=== PATIENT | male | born 1995 ===

== ENCOUNTER 2017-02-09 09:59 | Emergency (ER) | payer OTHER ==
[2017-02-09 10:21] VITALS: BP 132/85; PULSE 85; RESP 18; TEMP 97.7; O2SAT 96
--- NOTE | 2017-02-09 10:28 | UCPHY ---
H & P Time Seen by Provider: 02/09/17 10:14 Patient Type: Established HPI/ROS: CHIEF COMPLAINT: "I have testicular torsion" HPI: The patient is a 21-year-old male who states he has a history of testicular torsion. He complains of pain in the left testicle since approximately 9:00 a.m. this morning, 90 minutes ago. The patient went to see primary care provider in this building who examined him and told him that he likely had testicular torsion. The patient states that he has history of testicular torsion, but when asked about this, the patient states that he had similar symptoms a few years ago which he was able to correct on his own and had an ultrasound following that was normal. He has not ever been officially diagnosed with testicular torsion in the past. He denies any recent trauma. Patient tells me that what happens is he smokes too much marijuana which causes his testicles to ride very low, which then apparently causes testicular torsion. REVIEW OF SYSTEMS: Aside from elements discussed in the HPI, a comprehensive 10-point review of systems was reviewed and is negative. PMH: None known. SOCIAL HISTORY: Admits to marijuana use. Denies other drug abuse. FAMILY HISTORY: Reviewed, noncontributory PHYSICAL EXAM: General:Patient is alert, in no acute distress. ENT:Eyes are normal to inspection. ENT inspection normal. Neck: Normal inspection. Full range of motion. Respiratory:No respiratory distress. Breath sounds normal bilaterally. Cardiovascular: Regular rate and rhythm. Strong peripheral pulses. Normal cap refill. Abdomen:The abdomen is nontender to palpation. There are no peritoneal signs. There are normal bowel sounds. : Left testicle is somewhat high-riding compared to the right, the cremasteric reflex is intact. No tenderness. No swelling. No erythema. Penis is normal to inspection. Skin: Normal color. No rash. Warm and dry. Extremities: Normal appearance. Full range of motion. Neuro: Oriented x3. Normal motor function. Normal sensory function. Smoking Status: Never smoked Constitutional: Initial Vital Signs Temperature (C) 36.5 C 02/09/17 10:17 Heart Rate 85 02/09/17 10:17 Respiratory Rate 18 02/09/17 10:17 Blood Pressure 132/85 H 02/09/17 10:17 O2 Sat (%) 96 02/09/17 10:17 O2 Delivery Mode Room Air Allergies/Adverse Reactions: No Known Allergies Allergy (Unverified 10/20/14 16:14) Home Medications: Medication Instructions Recorded NK [No Known Home Meds] 10/20/14 MDM/Departure - [facility] ED Course/Re-evaluation: This patient arrives to the urgent care with concern for testicular torsion. Thankfully, ultrasound is negative. On exam, the patient has a somewhat high- riding left hemiscrotum but there is active cremasteric motion noted, no erythema and no significant tenderness. I explained to the patient that this is a normal finding for a scrotum, and reassured him about the negative ultrasound results. He is still somewhat convinced that there is something wrong with him. I recommended that he use less marijuana. - Depart Disposition: Home, Routine, Self-Care Clinical Impression: Testicle pain Condition: Good Instructions: Testicle Pain (ED) Additional Instructions: Return to the hospital for severe pain or swelling. Follow up with urologist within 1-2 weeks for further evaluation. Referrals: Doroteo Means MD [Primary Care Provider] - As per Instructions David Young MD [Medical Doctor] - As per Instructions - PQRS PQRS Measurement: 134: Depression screening and followup, PRIME MD-PHQ2 (12 years and older) Over the last 2 weeks, how often have you been bothered by any of the following problems? 1. Feeling down, depressed, or hopeless? 2. Little interest or pleasure in doing things? Patient answered no to both 1 and 2 130: Documentation of medications. Reviewed all patient medications, doses, route and frequency. 226: Do you smoke? No. 51: 18 years old and older with diagnosis of COPD, spirometry performance. Spirometry not performed; equipment not available. Patient has no history of COPD 52: 18 years old and older with COPD and symptoms of COPD or FEV1<60% predicted prescribed a B Agonist. Spirometry not performed; equipment not available.
== END 2017-02-09 11:35 | disposition home or self-care (01) ==
LOC: CED 09:59
DX: N50.812 Left testicular pain (principal); F12.90 Cannabis use, unspecified, uncomplicated
CPT/HCPCS: 76870-PO; G0463-PO

== ENCOUNTER → 2017-12-24 | Outpatient (CLI) | payer OTHER | LOC: CIMAGING 17:34 | PROVIDERS: ATTEND Family Medicine | DX: S99.922A Unspecified injury of left foot, initial encounter (principal) | CPT/HCPCS: 73630-PO ==